=== PATIENT | female | born 1935 | race Caucasian/White ===

== ENCOUNTER → 2016-08-08 | Outpatient (CLI) | payer MEDICARE, OTHER ==
[~2016-08-08] MED LIST: ACET-789 PO; ALPR.25T PO; ALPR0.2550 PO; AMLO5TAB2 PO; AMOX500C2 PO; ASP325T PO; ASP81CT; ASPI325T4 PO; ATEN-158 PO; ATEN100T88 PO; Amlodipine Besylate PO; BENAZEPRIL HCL PO; BNZ40T PO; CALTRATE PO; CATHETER FLUSH 10 ML SYR IV PRN; EST45C VG; GLIM1TAB PO; GLMP1T PO; HYDR1TAB85 PO; IOHEXOL 350 MG/ML 100 ML (OMNIPAQUE 350) VIAL IV ONE; MELA1TAB9 PO; MELATONIN PO; MULT-608 PO; Meloxicam PO; NS 100 ML (IVPB) BAG IV ONE; OMEP20CA12 PO; OXAP600T2 PO; PYRIDOXINE HCL PO; Rivaroxaban PO; SCR1T1 PO; SIMV40TA2 PO; SIMV40TA4 PO; Simvastatin PO; TOLT1TAB PO; [UNRECOGNIZED DRUG - CODE] PO; [UNRECOGNIZED DRUG - OTHER] PO
--- NOTE | 2016-08-08 11:40 | Diagnostic Imaging Report ---
PROCEDURE: CT abdomen and pelvis with contrast, rule out appendicitis. TECHNIQUE: Multiple contiguous axial images were obtained through the abdomen and pelvis after the administration of intravenous contrast. INDICATION: Right flank pain x4-5 months. COMPARISON: None FINDINGS: Included views of the lung bases show moderate cardiomegaly, but are otherwise clear. CT abdomen: Normal appendix cannot be adequately identified, but there is no pericecal inflammation. There is colonic diverticulosis, but no CT evidence of acute diverticulitis. Small bowel loops are nondistended. Benign-appearing renal cysts are present, bilaterally. Multiple subcentimeter rounded hypoenhancing foci are also noted. These may represent small cysts as well, although are too small adequately characterize based on this exam. No solid enhancing renal mass type lesions are identified. The spleen, adrenal glands, pancreas, and liver have a normal CT appearance. There is no loculated fluid collection, free fluid or free air within the abdomen. No abnormal mesenteric or retroperitoneal adenopathy is seen. There is mild scattered calcified aortic and arterial atherosclerosis. Bony structures show age-related degenerative changes, but no new acute bony abnormalities are seen. CT pelvis: Urinary bladder is grossly unremarkable. There is a fat-containing periumbilical hernia. Ostia measures approximately 4.4 cm in transverse dimension. There is no loculated fluid collection, free fluid or free air within the pelvis. No abnormal adenopathy is seen. Bony structures show no acute abnormalities. IMPRESSION: 1. No acute abnormalities within the abdomen or pelvis. 2. Colonic diverticulosis, but no CT evidence of acute diverticulitis. 3. Fat containing periumbilical hernia. 4. Multiple benign-appearing bilateral renal cysts. Again, multiple subcentimeter hypoenhancing rounded foci are also noted and may represent cysts as well, but are too small to adequately characterize based on this exam. 5. Cardiomegaly. Dictated by: Dictated on workstation # [id number]
== END ==
LOC: RAD 10:49
PROVIDERS: ATTEND Nurse Practitioner Family
DX: R10.31 Right lower quadrant pain (principal)
CPT/HCPCS: 74177

== ENCOUNTER → 2016-11-17 | Outpatient (CLI) | payer MEDICARE, OTHER ==
[~2016-11-17] MED LIST changes: -CATHETER FLUSH 10 ML SYR IV PRN; -IOHEXOL 350 MG/ML 100 ML (OMNIPAQUE 350) VIAL IV ONE; -NS 100 ML (IVPB) BAG IV ONE
== END ==
LOC: CARD 12:54
PROVIDERS: ATTEND Physician Assistant
DX: I25.10 Atherosclerotic heart disease of native coronary artery without angina pectoris (principal); I65.23 Occlusion and stenosis of bilateral carotid arteries; I10 Essential (primary) hypertension; I48.0 Paroxysmal atrial fibrillation
CPT/HCPCS: 93306

== ENCOUNTER 2017-06-15 19:02 | Emergency (ER) | payer MEDICARE, OTHER ==
[~2017-06-15] VITALS: Ht 157.5 cm; Wt 83.3 kg
--- NOTE | 2017-06-15 19:19 | Diagnostic Imaging Report ---
INDICATION: Fall. Right-sided weakness. FINDINGS: Upright chest shows cardiomegaly with mild pulmonary venous distention. The lungs are clear. There is no effusion or pneumothorax. There is no acute bony abnormality. IMPRESSION: There is cardiomegaly with no failure. Dictated by: Dictated on workstation # [id number]
--- NOTE | 2017-06-15 19:19 | Diagnostic Imaging Report ---
INDICATION: Fall. Right-sided weakness. Facial droop Images through the head were obtained without contrast. There is a 2.7 x 2.9 cm parenchymal hemorrhage in the posterior basal ganglia on the left. There may be minimal hemorrhage in the adjacent lateral ventricle. The ventricles are normal in size, shape and position. There is no significant midline shift. There is no other area of edema, hemorrhage or mass. There is no extra-axial mass or hemorrhage. IMPRESSION: There is a 2.9 cm parenchymal hemorrhage in the basal ganglia on the left. Dictated by: Dictated on workstation # [id number]
[2017-06-15 19:21] LABS: BASOPHILS # (AUTO) 0.1 10^3/uL (0.0-0.1); BASOPHILS % (AUTO) 1 % (0-10); EOSINOPHILS # (AUTO) 0.1 10^3/uL (0.0-0.3); EOSINOPHILS % (AUTO) 1 % (0-10); HEMATOCRIT 40 % (35-52); HEMOGLOBIN 13.5 G/DL (11.5-16.0); LYMPHOCYTES % (AUTO) 35 % (12-44); MEAN CORPUSCULAR HEMOGLOBIN 29 PG (25-34); MEAN CORPUSCULAR HGB CONC 33 G/DL (32-36); MEAN CORPUSCULAR VOLUME 88 FL (80-99); MEAN PLATELET VOLUME 10.1 FL (7.4-10.4); MONOCYTES # (AUTO) 0.5 X 10^3 (0.0-1.0); MONOCYTES % (AUTO) 8 % (0-12); NEUTROPHILS # (AUTO) 3.1 X 10^3 (1.8-7.8); NEUTROPHILS % (AUTO) 54 % (42-75); PLATELET COUNT 250 10^3/uL (130-400); RED CELL DISTRIBUTION WIDTH 13.6 % (10.0-14.5); WHITE BLOOD COUNT 5.8 10^3/uL (4.3-11.0)
[2017-06-15 19:30] VITALS: BP 197/128
[2017-06-15] MEDS ORDERED: HUMAN PROTHROMBIN COMPLX(PCC) 500 UNIT (KCENTRA) IV ONE (19:30)
[2017-06-15 19:38] LABS: ALANINE AMINOTRANSFERASE 11 U/L (0-55); ALBUMIN 3.7 GM/DL (3.2-4.5); ALKALINE PHOSPHATASE 69 U/L (40-136); BILIRUBIN,TOTAL 0.8 MG/DL (0.1-1.0); BUN/CREATININE RATIO 20; CALCIUM 8.9 MG/DL (8.5-10.1); CARBON DIOXIDE 25 MMOL/L (21-32); CHLORIDE 108 MMOL/L (98-107); CREATININE SERUM 0.87 MG/DL (0.60-1.30); GFR ESTIMATED > 60; GLUCOSE 95 MG/DL (70-105); POTASSIUM 3.9 MMOL/L (3.6-5.0); SODIUM 143 MMOL/L (135-145); TOTAL PROTEIN 6.4 GM/DL (6.4-8.2)
[2017-06-15] MEDS ORDERED: hydrALAZINE (APESOLINE) 20 MG/ML VIAL ONE (19:38)
[2017-06-15] MEDS ORDERED: hydrALAZINE (APESOLINE) 20 MG/ML VIAL IV ONE (19:45)
[2017-06-15 19:47] LABS: BILIRUBIN,URINE NEGATIVE (NEGATIVE); CLARITY,URINE CLEAR; COLOR,URINE YELLOW; GLUCOSE, URINE (UA) NEGATIVE (NEGATIVE); KETONES,URINE NEGATIVE (NEGATIVE); LEUKOCYTE ESTERASE ,URINE NEGATIVE (NEGATIVE); NITRITE,URINE NEGATIVE (NEGATIVE); PH,URINE 8 (5-9); PROTEIN,URINE NEGATIVE (NEGATIVE); UROBILINOGEN,URINE NORMAL (NORMAL)
[2017-06-15 19:48] LABS: AMORPHOUS SEDIMENT,UR MOD AMOR PHOSPHATE /LPF; SQUAMOUS EPITHELIAL CELL,UR RARE /HPF
[2017-06-15] MEDS ORDERED: NS (IVPB) 250 ML ONE (19:48)
[2017-06-15] MEDS ORDERED: niCARdipine IV FOR DRIP 50 MG KIT ONE (19:48)
[2017-06-15] MEDS ORDERED: NS (IVPB) 100 ML ONE (19:51)
[2017-06-15 19:52] LABS: INR 2.8 (0.8-1.4); PROTHROMBIN TIME PATIENT 29.5 SEC (12.2-14.7)
[2017-06-15 19:55] LABS: FIBRIN DEGRADATION PRODUCTS 0.77 UG/ML (0.00-0.49)
[2017-06-15] MEDS ORDERED: DILTIAZEM IV FOR DRIP 125 MG in D5W 100 ML IVPB 100 ML IV SCH (20:00)
--- NOTE | 2017-06-15 20:00 | ED Neurological Problem ---
General Chief Complaint: Neuro-Stroke Like Symptoms Stated Complaint: STROKE Source: family, EMS Exam Limitations: clinical condition History of Present Illness Date Seen by Provider: Jun 15, 2017 Time Seen by Provider: 19:02 Initial Comments This 81-year-old woman presents to the emergency room with acute onset of right- sided weakness, dysphasia, dysarthria and altered mental status. Last known well time was around 18:00 when she was working outside. reported that she came inside and he heard a thump in the other room around 18:30. He found her on the floor in her present condition. EMS reports finger stick blood sugar is 100. Blood pressure for EMS was 110/70. Allergies and Home Medications Allergies Coded Allergies: No Known Drug Allergies (Unverified , 03/30/10) Home Medications Alprazolam 0.25 Mg Tab, 0.25 MG PO HS for 30 Days Prescribed by: IZABEL DO on 03/13/141730 Aspirin 325 Mg Tab, 325 MG PO DAILY for 30 Days Prescribed by: IZABEL DO on 03/13/14 173 Atenolol 50 Mg Tab, 100 MG PO BID for 30 Days Prescribed by: IZABEL DO on 03/13/141730 Glimepiride 1 Mg Tab, 0.5 MG PO DAILY for 30 Days Prescribed by: IZABEL DO on 03/13/141730 Oxaprozin 600 Mg Tablet, 600 MG PO DAILY, (Reported) [Amlodipine Besylate] 5 MG TAB, 5 MG PO DAILY for 30 Days Prescribed by: IZABEL DO on 03/13/14 173 [Benazepril Hcl (Lotensin 40 Mg)] 1 EA EA, 40 MG PO DAILY for 30 Days Prescribed by: IZABEL DO on 03/13/14 173 [Melatonin/Pyridoxine Hcl (Melatonin 1 Mg Tablet)] 1 EA EA, 1 MG PO HS for 30 Days Prescribed by: IZABEL DO on 03/13/14 173 [Meloxicam] 7.5 MG TABLET, 15 MG PO DAILY for 30 Days Prescribed by: IZABEL DO on 03/13/141730 [Rivaroxaban] 20 MG TABLET, 20 MG PO DAILY@1700 for 30 Days Prescribed by: IZABEL DO on 03/13/14 173 [Simvastatin] 40 MG TABLET, 20 MG PO HS for 30 Days Prescribed by: IZABEL DO on 03/13/14 1731 [Urinary Support] , 1 TAB PO DAILY, (Reported) HERBAL PILL WITH UVA-URSI LEAF, DAYO LEAF, BLACK HAW ROOT BARK, CRANBERRY JUICE CONCENTRATE, MELATONIN Constitutional: no symptoms reported, diaphoresis Ears, Nose, Mouth, Throat: no symptoms reported Respiratory: no symptoms reported Cardiovascular: see HPI Gastrointestinal: no symptoms reported Genitourinary: no symptoms reported : No Musculoskeletal: no symptoms reported Skin: no symptoms reported Psychiatric/Neurological: See HPI Endocrine: No Symptoms Reported Past Guiepew-Tthevo-Jcvcjw Hx Immunizations Up To Date Date of Pneumonia Vaccine: Oct 04, 2010 Surgeries History of Surgeries: Yes Surgeries: Gallbladder, Hysterectomy, Orthopedic Respiratory History of Respiratory Disorde: No Cardiovascular History of Cardiac Disorders: Yes Cardiac Disorders: Atrial Fibrillation (on Xarelto), Hypertension Neurological History of Neurological Disord: No Reproductive System Hx Reproductive Disorders: No Genitourinary History of Genitourinary Disor: No Gastrointestinal History of Gastrointestinal Di: Yes Gastrointestinal Disorders: Gastroesophageal Reflux Musculoskeletal History of Musculoskeletal Dis: Yes Musculoskeletal Disorders: Arthritis Endocrine History of Endocrine Disorders: Yes Endocrine Disorders: Diabetes, Non-Insulin dep HEENT History of HEENT Disorders: Yes HEENT Disorders: Cataract Family Medical History Family Medial History: Arthritis G8 BROTHER Cardiovascular disease G8 BROTHER Diabetes mellitus 19 MOTHER G8 BROTHER G8 SISTER Hypertension 19 MOTHER G8 BROTHER Myocardial infarction G8 BROTHER No Family History of: AIDS Abdominal aortic aneurysm Oxly's disease Alcoholism Alzheimer's disease Aphasia Asthma Cancer of mouth Colon cancer Completed stroke Congenital disease Congenital heart disease Coronary thrombosis Cystic fibrosis Deafness or hearing loss Dementia Drug abuse Dysphasia Fibrocystic disease of breast Gastroenteritis Glaucoma Headache disorder Hypercholesterolemia Infertility Kidney disease Neoplasm Osteoporosis Parkinson's disease Prostate cancer Psychosocial problem Respiratory disorder Seizure disorder Severe allergy Thyroid disease Tuberculosis Visual disorder Physical Exam Vital Signs Vital Signs - First Documented 06/15/17 06/15/17 19:02 19:05 Temp 96.8 Pulse 54 Resp 15 B/P (MAP) 201/117 (145) Pulse Ox 100 O2 Delivery Room Air O2 Flow Rate 2.00 Capillary Refill : General Appearance: WD/WN, mild distress HEENT: PERRL/EOMI, pharynx normal, other (right-sided facial droop) Neck: normal inspection Respiratory: lungs clear, normal breath sounds, no respiratory distress, no accessory muscle use Cardiovascular: regular rate, rhythm, no edema, no murmur Gastrointestinal: normal bowel sounds, soft Extremities: normal inspection, no pedal edema Neurologic/Psychiatric: alert, abnormal ob scrub tech II-XII (right-sided facial droop, dysarthria, dysphasia), aphasia, motor weakness (right upper extremity and left lower extremity notably weak. Left upper extremity and right lower extremity also weak but to a lesser degree) Crainal Nerves: PERRL, abnormal speech, facial droop (right side) Motor/Sensory: no sensory deficit Skin: normal color, warm/dry Progress/Results/Core Measures Results/Orders Lab Results Laboratory Tests Test 06/15/17 19:05 06/15/17 19:15 06/15/17 19:24 Range/Units White Blood Count 5.8 4.3-11.0 10^3/uL Red Blood Count 4.60 4.35-5.85 10^6/uL Hemoglobin 13.5 11.5-16.0 G/DL Hematocrit 40 35-52 % Mean Corpuscular Volume 88 80-99 FL Mean Corpuscular Hemoglobin 29 25-34 PG Mean Corpuscular Hemoglobin Concent 33 32-36 G/DL Red Cell Distribution Width 13.6 10.0-14.5 % Platelet Count 250 130-400 10^3/uL Mean Platelet Volume 10.1 7.4-10.4 FL Neutrophils (%) (Auto) 54 42-75 % Lymphocytes (%) (Auto) 35 12-44 % Monocytes (%) (Auto) 8 0-12 % Eosinophils (%) (Auto) 1 0-10 % Basophils (%) (Auto) 1 0-10 % Neutrophils # (Auto) 3.1 1.8-7.8 X 10^3 Lymphocytes # (Auto) 2.0 1.0-4.0 X 10^3 Monocytes # (Auto) 0.5 0.0-1.0 X 10^3 Eosinophils # (Auto) 0.1 0.0-0.3 10^3/uL Basophils # (Auto) 0.1 0.0-0.1 10^3/uL Sodium Level 143 135-145 MMOL/L Potassium Level 3.9 3.6-5.0 MMOL/L Chloride Level 108 H 98-107 MMOL/L Carbon Dioxide Level 25 21-32 MMOL/L Anion Gap 10 5-14 MMOL/L Blood Urea Nitrogen 17 7-18 MG/DL Creatinine 0.87 0.60-1.30 MG/DL Estimat Glomerular Filtration Rate > 60 BUN/Creatinine Ratio 20 Glucose Level 95 70-105 MG/DL Calcium Level 8.9 8.5-10.1 MG/DL Total Bilirubin 0.8 0.1-1.0 MG/DL Aspartate Amino Transf (AST/SGOT) 22 5-34 U/L Alanine Aminotransferase (ALT/SGPT) 11 0-55 U/L Alkaline Phosphatase 69 40-136 U/L Troponin I < 0.30 <0.30 NG/ML Total Protein 6.4 6.4-8.2 GM/DL Albumin 3.7 3.2-4.5 GM/DL Prothrombin Time 29.5 H 12.2-14.7 SEC INR Comment 2.8 H 0.8-1.4 Activated Partial Thromboplast Time 36 H 24-35 SEC D-Dimer 0.77 H 0.00-0.49 UG/ML Glucometer 101 70-110 MG/DL Urine Color YELLOW Urine Clarity CLEAR Urine pH 8 5-9 Urine Specific [place] 1.015 L 1.016-1.022 Urine Protein NEGATIVE NEGATIVE Urine Glucose (UA) NEGATIVE NEGATIVE Urine Ketones NEGATIVE NEGATIVE Urine Nitrite NEGATIVE NEGATIVE Urine Bilirubin NEGATIVE NEGATIVE Urine Urobilinogen NORMAL NORMAL MG/DL Urine Leukocyte Esterase NEGATIVE NEGATIVE Urine RBC (Auto) 4+ H NEGATIVE Urine RBC 10-25 H /HPF Urine WBC NONE /HPF Urine Squamous Epithelial Cells RARE /HPF Urine Crystals PRESENT H /LPF Urine Amorphous Sediment MOD BALA PHOSPHATE H /LPF Urine Bacteria NONE /HPF Urine Casts NONE /LPF Urine Mucus NEGATIVE /LPF Urine Culture Indicated NO My Orders Orders - SANJUANA FOLEY MD Cbc With Automated Diff (06/15/17 19:04) Protime With Inr (06/15/17 19:04) Partial Thromboplastin Time (06/15/17 19:04) Comprehensive Metabolic Panel (06/15/17 19:04) Fibrin Degradation Products (06/15/17 19:04) Troponin I (06/15/17 19:04) Ua Culture If Indicated (06/15/17 19:04) Chest 1 View, Ap/Pa Only (06/15/17 19:04) Catheter(Urinary) Insert & Ass 03,15 (06/15/17 19:04) Ekg Tracing (06/15/17 19:04) Nothing By Mouth (06/16/17 Breakfast) Accucheck Stat ONCE (06/15/17 19:04) Saline Lock/Iv-Start (06/15/17 19:04) Saline Lock/Iv-Start (06/15/17 19:04) Vital Signs - Stroke Q15M (06/15/17 19:04) Ct Head Wo-R/O Stroke (06/15/17 19:04) O2 (06/15/17 19:04) Intake & Output 06,14,22 (06/15/17 19:04) Monitor-Rhythm Ecg Trace Only (06/15/17 19:04) Dysphagia Screening Tool (06/15/17 19:04) Post Thrombolytic Adminstratio (06/15/17 19:04) Human Prothrombin Complx(Pcc) (Kcentra K (06/15/17 19:30) Hydralazine Injection (Apresoline Inject (06/15/17 19:45) Hydralazine Injection (Apresoline Inject (06/15/17 19:38) Nicardipine Iv For Drip (Cardene I.V. (O (06/15/17 19:48) Ns (Ivpb) (Sodium Chloride 0.9%) (06/15/17 19:48) Ns (Ivpb) (Sodium Chloride 0.9% Ivpb Bag (06/15/17 19:51) D5w 100 Ml Ivpb (De... W/Diltiazem Iv Fo (06/15/17 20:00) Phytonadione (Adult) Injection (Aquameph (06/15/17 20:15) Phytonadione (Adult) Injection (Aquameph (06/15/17 20:12) Ns (Ivpb) (Sodium C... W/Nicardipine Iv (06/15/17 20:30) Medications Given in ED Current Medications Medications Dose Ordered Sig/Sonia Route Start Time Stop Time Status Last Admin Dose Admin Hydralazine HCl 20 mg ONCE ONCE IV 06/15/17 19:45 06/15/17 19:46 DC 06/15/17 19:40 20 MG Nicardipine HCl 50 mg STK-MED ONCE .ROUTE 06/15/17 19:48 06/15/17 19:51 DC 06/15/17 19:58 50 MG Phytonadione 10 mg STK-MED ONCE .ROUTE 06/15/17 20:12 06/15/17 20:15 DC 06/15/17 20:19 10 MG Prothrombin Complex Concent (Human) 4,000 unit ONCE ONCE IV 06/15/17 19:30 06/15/17 19:31 DC 06/15/17 19:59 4,000 UNIT Vital Signs/I&O Vital Sign - Last 12Hours 06/15/17 06/15/17 06/15/17 19:02 19:05 19:58 Temp 96.8 Pulse 54 72 Resp 15 16 B/P (MAP) 201/117 (145) 166/70 Pulse Ox 100 98 O2 Delivery Room Air Nasal Cannula Room Air O2 Flow Rate 2.00 ECG Initial ECG Impression Date: Jun 15, 2017 Initial ECG Impression Time: 19:17 Initial ECG Rate: 56 Initial ECG Rhythm: A Fib/Flutter Initial ECG Impression: Atrial Fibrillation Comment Atrial fibrillation with slightly bradycardic rate. Borderline left axis deviation. No ST elevation or depression. Diagnostic Imaging Diagonstic Imaging: Xray Plain Films/CT/US/NM/MRI: chest Comments NAME: RACHEL JUAREZ MED REC#: [id number] PT STATUS: REG ER : 1935 PHYSICIAN: SANJUANA FOLEY MD ADMIT DATE: 06/15/17/ER Signed Date of Exam: 06/15/17 CHEST 1 VIEW, AP/PA ONLY INDICATION: Fall. Right-sided weakness. FINDINGS: Upright chest shows cardiomegaly with mild pulmonary venous distention. The lungs are clear. There is no effusion or pneumothorax. There is no acute bony abnormality. IMPRESSION: There is cardiomegaly with no failure. Dictated by: Dictated on workstation # [id number] Dict: 06/15/171914 Trans: 06/15/171924 Interpreted by: MEIR MONTIEL MD Electronically signed by: MEIR MONTIEL MD 06/15/171924 Diagonstic Imaging: CT Plain Films/CT/US/NM/MRI: head Comments CT head viewed by me and immediately discussed with the radiologist. Report reviewed. See report below: NAME: RACHEL JUAREZ [facility] REC#: [id number] PT STATUS: REG ER : 1935 PHYSICIAN: SANJUANA FOLEY MD ADMIT DATE: 06/15/17/ER Signed Date of Exam: 06/15/17 CT HEAD WO-R/O STROKE INDICATION: Fall. Right-sided weakness. Facial droop Images through the head were obtained without contrast. There is a 2.7 x 2.9 cm parenchymal hemorrhage in the posterior basal ganglia on the left. There may be minimal hemorrhage in the adjacent lateral ventricle. The ventricles are normal in size, shape and position. There is no significant midline shift. There is no other area of edema, hemorrhage or mass. There is no extra-axial mass or hemorrhage. IMPRESSION: There is a 2.9 cm parenchymal hemorrhage in the basal ganglia on the left. Dictated by: Dictated on workstation # [id number] Dict: 06/15/171912 Trans: 06/15/171924 Interpreted by: MEIR MONTIEL MD Electronically signed by: MEIR MONTIEL MD 06/15/171924 Critical Care Note Critical Care Start Time: 19:02 Stop Time: 20:40 Progress 19:55 - Patient was taken immediately to CT scan for symptoms of acute stroke. There she was found to have a significant left-sided parenchymal hemorrhage. Patient is on Xarelto for atrial fibrillation. Patient has fairly profound deficits with an NIH of 23. Deficits are bilateral and also affect speech and comprehension. KCentra was ordered as part of the hemorrhage protocol. Patient developed hypertension after arrival. She was given hydralazine 20 mg by IV route. Cardizem drip was then ordered. I discussed wishes with patient' s who is agreeable to transfer to a facility with a neurosurgical expertise. [facility] [place] will accept the patient. I discussed the case with Dr. Anderson and Dr. Monterroso at 19:25. Patient was accepted. [facility] on standby. I did have a discussion with patient's about CODE STATUS. He stated in prior discussions patient indicated she did not want life support. Based on her overall condition and this discussion, the and I elect DO NOT RESUSCITATE status. Patient is unable to clearly communicate her wishes in this regard at this time. 19:59 - Bed assignment was received from [facility] and the helicopter service has been notified. 20:05 - The CT scan of the cervical spine was not performed with the standard protocol for stroke. Therefore a c-collar was placed because we are uncertain if patient had a fall. She will be reimaged at the receiving facility and cervical spine can be imaged at that time. Imaging the cervical spine at this point will not change her disposition. 20:14 - Patient's medications were further reviewed including her external medication filling list. Although the initial list in our computer system noted Xarelto, she actually has most recently been on warfarin. Patient's confirms that she is on warfarin and not Xarelto. Vitamin K 10 mg IV was added to the anticoagulant reversal. Patient did receive the PCC. (KCentra) . [facility] was updated through the transfer line. 20:21 - Cardene drip is infusing. Present blood pressure is 129/69. Heart rate is 71. Departure Impression Impression: Primary Impression: Intracranial hemorrhage Additional Impressions: Dysarthria Dysphasia Weakness of extremity Anticoagulated on warfarin Hypertensive emergency Disposition: 02 XFER SHT-TRM HOSP Condition: Stable Transfer Time Spoke to Accepting Phy: 19:25 Transfer Time: 20:45 [facility] Dr. Monterroso Method of Transfer: Air Departure-Patient Inst. Referrals: RISA RAMIREZ MD (PCP/Family) Primary Care Physician SANJUANA FOLEY MD Jun 15, 2017 20:00
[2017-06-15] MEDS ORDERED: PHYTONADIONE (VIT. K) 10 MG/ML AMP ONE (20:12)
[2017-06-15] MEDS ORDERED: D5W IV ONE (20:15)
[2017-06-15] MEDS ORDERED: PHYTONADIONE IV ONE (20:15)
[2017-06-15] MEDS ORDERED: niCARdipine IV 50 MG in NS (IVPB) 230 ML IV SCH (20:30)
[2017-06-15 20:40] VITALS: BP 129/69
[2017-06-15 20:45] VITALS: BP 129/69
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
--- OUTSIDE RECORDS SUMMARY | 2017-06-18 12:59 | XMS REPORT | Clinical Summary ---
Author Author User, [employer] Organization [facility] Address Unknown Phone Unavailable Allergies, Adverse Reactions, [...] Coronary atherosclerosis of unspecified type of vessel, [place] or graft INSOMNIA, CHRONIC 780.52 Active Dena [...] Urinary frequency KNEE PAIN 719.46 Resolved Dena Pike Pain in joint involving lower leg ACTINIC [...] perforation EAR PAIN, BILATERAL 388.70 Resolved Dena Pkie Otalgia, unspecified GERD 530.81 Resolved Dena Pike [...] PO on Thursday and . WARFARIN SODIUM 40892010793 Active Dena Pike AMARYL 1 MG TABS 1/2 PO daily GLIMEPIRIDE 35809235558 Active Dena Pike XARELTO 20 MG TABS 1 po daily RIVAROXABAN 09426076177 No Longer Active Dena Pike LASIX 20 MG TAB 1 PO 3 times weekly prn swelling FUROSEMIDE 12686760411 Active Gloria Frazier ZANTAC 150 MG TAB 1 PO bid RANITIDINE HCL 60725509687 No Longer Active Dena Juhi Pike MOBIC 15 MG TABS 1 po daily MELOXICAM 37735596965 Active Dena Pike FREESTYLE TEST STRIPS STRP as directed GLUCOSE BLOOD 63244938639 No Longer Active Dena Juhi Pike CALTRATE 600 PLUS-VIT D 600-200 MG-IU TABS 1 PO bid CALCIUM-VITAMIN D 70707563845 No Longer Active Denaagata Pike HERBAL BLADDER MEDICINE 1 PO daily HERBAL BLADDER MEDICINE No Longer Active Denaagata Pike CLOTRIMAZOLE-BETAMETHASONE 1-0.05 % CREA apply to affected areas prn CLOTRIMAZOLE-BETAMETHASONE 67750354644 No Longer Active Dean Juhi Pike ZOCOR 40 MG TABS 1/2 PO DAILY SIMVASTATIN 29082447009 Active Denaagata Pike SILVADENE 1 % CREA apply small amount over wound twice daily 2011 SILVER SULFADIAZINE 28127216856 No Longer Active Denaagata Pike NORVASC 5 MG TAB 1 PO QD AMLODIPINE BESYLATE 80399647467 Active Dena Juhi Pike DAYPRO 600 MG TABS 1 PO DAILY OXAPROZIN 10973077680 No Longer Active Wing Smiley XANAX 0.25 MG TABS 1 PO Q hs ALPRAZOLAM 03066152778 Active Dena Juhi Pike XANAX 0.25 MG TABS 1 PO BID as needed for nerves ALPRAZOLAM 21317797948 No Longer Active Denaagata Pike HYDROCODONE-ACETAMINOPHEN 10-660 MG TABS 1 po q 3 hrs prn pain HYDROCODONE-ACETAMINOPHEN 01139447553 No Longer Active Dena Juhi Pike MOBIC 15 MG TABS 1 PO daily for arthritis pain MELOXICAM 83108340602 No Longer Active Gloriatierra Frazier COUMADIN 5 MG TAB 1 PO daily WARFARIN SODIUM 83071516581 No Longer Active Dena Juhi Pike PROTONIX 40 MG TBEC 1 po qd PANTOPRAZOLE SODIUM 91112095112 No Longer Active Dena Juhi Pike LASIX 20 MG TAB 1 PO daily prn swelling FUROSEMIDE 03135604625 No Longer Active Dena Juhi iPke CARAFATE 1 GM TABS 1 PO 30 minutes before meals and at bedtime SUCRALFATE 75112327065 No Longer Active Dena Juhi Pike FISH OIL 500 MG CAPS 1 PO daily OMEGA-3 FATTY ACIDS 96523245149 No Longer Active Dena Juhi Pike OMEPRAZOLE 20 MG CPDR 1 PO BID OMEPRAZOLE 83903069091 No Longer Active Dena Juhi Pike DIOVAN 320 MG TABS 1 PO daily VALSARTAN 56203006361 No Longer Active Dena Juhi Pike ASPIR-LOW 81 MG TBEC 1 PO QOD ASPIRIN 00807498516 No Longer Active Dena Juhi Pike K-DUR 10 MEQ TAB CR 1 PO daily as directed POTASSIUM CHLORIDE No Longer Active Dena Juhi Pike LASIX 20 MG TAB 1 PO every other day prn swelling FUROSEMIDE 50527312180 No Longer Active Denaagata Pike DETROL 1 MG TABS 1 PO BID TOLTERODINE TARTRATE 60975001221 No Longer Active Gómez Gomez BENADRYL 25 MG CAP 1 PO QPM DIPHENHYDRAMINE HCL 17016185109 No Longer Active Denaagata Pike MELATONIN 5 MG TABS 1 PO QHS MELATONIN 69331337612 Active Dena Juhi Pike VYTORIN 10-20 MG TABS 1/2 PO daily EZETIMIBE-SIMVASTATIN 46827527848 No Longer Active Dena Juhi Pike LOTENSIN 40 MG TAB 1 PO Daily BENAZEPRIL HCL 52452386926 Active Dena Juhi Pike ZOCOR 10 MG TABS 1 po daily SIMVASTATIN 98316195978 No Longer Active Valerie Talbertgrist LIPITOR 10 MG TABS 1 PO QOD ATORVASTATIN CALCIUM 47230350649 No Longer Active Ashlee Sheppard K-DUR 20 MEQ TBCR 1 po daily prn POTASSIUM CHLORIDE KAMINI CR 46327778776 No Longer Active Dena Juhi Pike LASIX 20 MG TABS 1 po daily prn FUROSEMIDE 71413137940 No Longer Active Dena Juhi Pike LIPITOR 10 MG TABS 1 tab po qod ATORVASTATIN CALCIUM 55157815142 No Longer Active Dena Juhi Pike LUNESTA 2 MG TABS 1 PO QHS prn ESZOPICLONE 48205610129 No Longer Active Dena Juhi Pike ADVAIR DISKUS 100-50 MCG/DOSE MISC 1 puff BID for 3 days FLUTICASONE-SALMETEROL 22048755699 No Longer Active Dena Juhi Pike ALTACE 10 MG CAPS 1 PO daily RAMIPRIL 76668204278 No Longer Active Gloria Frazier LUNESTA 2MG 1 PO QHS LUNESTA 2MG No Longer Active Dena Juhi Pike AVANDIA 4 MG TABS 1 po BID ROSIGLITAZONE MALEATE 93556776738 No Longer Active Dena Juhi Pike TRAZODONE HCL 50 MG TABS 1-2 tabs po at hs TRAZODONE HCL 99789471848 No Longer Active Dena Juhi Pike OMEPRAZOLE 20 MG CPDR 1 tab po daily prn OMEPRAZOLE 97479561185 No Longer Active Dena Juhi Pike DAYPRO 600 MG TABS 1/2 - 1 tab po daily prn OXAPROZIN 53989018086 No Longer Active Dena Juhi Pike LOTREL 5-10 MG CAP 1 PO QD AMLODIPINE BESY-BENAZEPRIL HCL 51554136925 No Longer Active Dena Juhi Pike GLUCOPHAGE 500 MG TAB 1 PO TID METFORMIN HCL 09170534183 No Longer Active Dena Juhi Pike AMBIEN 10 MG TAB 1 prn ZOLPIDEM TARTRATE 62479570783 No Longer Active Dena Juhi Pike GLUCOPHAGE 500 MG TABS 1 tab po tid METFORMIN HCL 54161525248 No Longer Active Dena Juhi Pike LISINOPRIL 20 MG TABS 1 tab po daily LISINOPRIL 89541909563 No Longer Active Dena Juhi Pike ATENOLOL 100 MG TABS 1 tab po bid ATENOLOL 61700209174 Active Dena Juhi Pike Immunizations Vaccine Administration Date Value Standard Description Influenza vaccine given received influenza virus vaccine, unspecified formulation pneumococcal immunization administered done pneumococcal polysaccharide vaccine, 23 valent dT (Diphtheria and Tetanus) booster given Dr. Pike Td(adult) unspecified formulation Comvax, combined Hemophilus influenza B and Hepatitis B virus vaccine done Haemophilus influenzae type b conjugate and Hepatitis B vaccine pneumococcal immunization administered [facility] pneumococcal polysaccharide vaccine, 23 valent Vital [...] mg/dL Encounters Code Encounter Date Provider Facility CPT-74520 Ofc Vst, Est Level III 12:15:17 CDT Denaagata Monahan Pike, DO, FACP CPT-66171 Ofc Vst, Est Level III 16:00:06 CDT Dena Juhi Monahan Pike, DO, FACP CPT-43898 Ofc Vst, Est Level IV 11:43:30 CDT Dena Juhi Monahan Glendy, DO, FACP CPT-62672 Ofc Vst, Est Level III 17:09:51 CDT Denaagata Monahan Glendy, DO, FACP CPT-35599 Ofc Vst, Est Level IV 15:22:22 ELECTRONIC FIELD SERVICE ENGINEER eDna Monahan Glendy, DO, FACP CPT-92745 Ofc Vst, Est Level IV 15:46:40 CDT Dena Juhi Monahan Glendy, DO, FACP CPT-97354 Ofc Vst, Est Level IV 11:09:13 CDT Denaagata [facility] CPT-56853 Ofc Vst, Est Level IV 11:32:45 CDT Dena Juhi Monahan Glendy, DO, FACP CPT-67953 Ofc Vst, Est Level V 11:22:10 ELECTRONIC FIELD SERVICE ENGINEER Dena Monahan Glendy, DO, FACP CPT-43243 Ofc Vst, Est Level IV 10:53:51 ELECTRONIC FIELD SERVICE ENGINEER Dena Juhi Monahan Pike, DO, FACP CPT-49888 Ofc Vst, Est Level IV 10:55:38 CDT Dena Juhi Monahan Glendy, DO, FACP CPT-59701 Ofc Vst, Est Level IV 12:00:45 CDT Denaagata Monahan Glendy, DO, FACP CPT-05812 Ofc Vst, Est Level IV 12:02:26 ELECTRONIC FIELD SERVICE ENGINEER Dena Juhi Monahan Glendy, DO, FACP CPT-55209 Ofc Vst, Est Level IV 11:23:31 CDT Dena Juhi Monahan Glendy, DO, FACP CPT-07373 Ofc Vst, Est Level IV 10:43:31 CDT Dena Juhi Monahan Glendy, DO, FACP CPT-99739 Ofc Vst, Est Level IV 11:03:49 CDT Dena Juhi Monahan Glendy, DO, FACP CPT-45000 Ofc Vst, Est Level IV 11:59:36 CDT Dena Juhi Monahan Glendy, DO, FACP CPT-60618 Ofc Vst, Est Level IV 11:55:00 ELECTRONIC FIELD SERVICE ENGINEER Dena Monahan Glendy, DO, FACP CPT-73981 Ofc Vst, Est Level IV 14:11:27 CDT Dena Juhi Monahan Glendy, DO, FACP CPT-32037 Ofc Vst, Est Level III 13:44:49 CDT Dena Juhi Monahan Glendy, DO, FACP CPT-18304 Ofc Vst, Est Level V 11:29:53 CDT Denaagata Monahan Glendy, DO, FACP CPT-52169 Ofc Vst, Est Level IV 15:14:05 ELECTRONIC FIELD SERVICE ENGINEER Denaagata Monahan Glendy, DO, FACP CPT-92288 Ofc Vst, Est Level IV 14:47:42 CDT Dena Juhi Monahan Glendy, DO, FACP CPT-29184 Ofc Vst, Est Level IV 14:22:26 CDT Dena Cortezanne Glendy [facility] CPT-35933 Ofc Vst, Est Level IV 14:22:07 CDT Dena Juhi Pike [facility] CPT-24035 Ofc Vst, Est Level IV 14:37:46 ELECTRONIC FIELD SERVICE ENGINEER Dena Pike [facility] CPT-27069 Ofc Vst, Est Level IV 13:47:03 CDT Dena Pike [facility] CPT-89805 Ofc Vst, Est Level IV 14:19:58 CDT Dena Pike [facility] CPT-34975 Ofc Vst, Est Level IV 14:14:41 ELECTRONIC FIELD SERVICE ENGINEER Dena Pike [facility] CPT-93945 Ofc Vst, Est Level IV 15:18:29 ELECTRONIC FIELD SERVICE ENGINEER Dena Pike [facility] CPT-31586 Ofc Vst, Est Level IV 15:00:16 ELECTRONIC FIELD SERVICE ENGINEER Dena Pike [facility] CPT-04509 Ofc Vst, Est Level IV 16:17:24 ELECTRONIC FIELD SERVICE ENGINEER Dena Pike [facility] CPT-38911 Ofc Vst, Est Level V 10:49:19 ELECTRONIC FIELD SERVICE ENGINEER Dena Pike [facility] CPT-51138 Ofc Vst, Est Level IV 14:06:43 CDT Dena Pike [facility] CPT-40375 Ofc Vst, Est Level IV 14:00:54 CDT Dena Pike [facility] CPT-66183 Ofc Vst, Est Level IV 18:22:05 ELECTRONIC FIELD SERVICE ENGINEER Dena Pike [facility] CPT-26730 Ofc Vst, Est Level IV 17:56:25 ELECTRONIC FIELD SERVICE ENGINEER Dena Pike [facility] CPT-06916 Ofc Vst, Est Level IV 19:09:11 CDT Dena Pike [facility] CPT-17382 Ofc Vst, New Level III 15:31:43 CDT Dena Pike [facility] Procedures Code Procedure Name Date Entry Date [...] Medicare Annual Wellness Visit Initial 15:35:03 CDT CPT-80693 Injection, Pneumovax 10:53:51 ELECTRONIC FIELD SERVICE ENGINEER CPT-07655 Cryopathy Skin 10:53:51 ELECTRONIC FIELD SERVICE ENGINEER CPT-81937 Tetanus vaccine, adsorbed, intramuscular 13:44:49 CDT CPT-87144 Cryopathy Skin 14:22:07 CDT CPT-61408 Cryopathy Skin 14:37:46 ELECTRONIC FIELD SERVICE ENGINEER CPT-27768 EKG w/ Interpretation 10:49:19 ELECTRONIC FIELD SERVICE ENGINEER
--- OUTSIDE RECORDS SUMMARY | 2017-06-18 13:00 | XMS REPORT | Clinical Summary ---
Author Author User, [employer] Organization [facility] Address Unknown Phone Unavailable Allergies, Adverse Reactions, [...] Coronary atherosclerosis of unspecified type of vessel, [place] or graft INSOMNIA, CHRONIC 780.52 Active Dena [...] keratosis VACCINE AGAINST STREPTOCOCCUS PNEUMONIAE V03.82 Resolved eDna Pike Need for prophylactic vaccination against Streptococcus [...] Generic Name NDC Status Provider Patient Instruction CLOTRIMAZOLE-BETAMETHASONE 1-0.05 % CREA APPLY TO AFFECTED AREAS PRN CLOTRIMAZOLE-BETAMETHASONE 43953038368 Active Dena Pike CALTRATE 600 PLUS-VIT D 600-200 MG-IU TABS 1 PO daily CALCIUM-VITAMIN D Active Dena Pike COUMADIN 2 MG TAB 1 PO daily except 2 PO on Thursday and . WARFARIN SODIUM 09327507729 Active Dena Pike AMARYL 1 MG TABS 1/2 PO daily GLIMEPIRIDE 43742127875 Active Dena Pike XARELTO 20 MG TABS 1 po daily RIVAROXABAN 51264343353 No Longer Active Dena Pike LASIX 20 MG TAB 1 PO 3 times weekly prn swelling FUROSEMIDE 16110292636 Active Gloria Frazier ZANTAC 150 MG TAB 1 PO bid RANITIDINE HCL 83040646154 No Longer Active Dena Pike MOBIC 15 MG TABS 1 po daily MELOXICAM 68360809729 Active Gloria Frazier FREESTYLE TEST STRIPS STRP as directed GLUCOSE BLOOD 67181937583 No Longer Active Dena Pike CALTRATE 600 PLUS-VIT D 600-200 MG-IU TABS 1 PO bid CALCIUM-VITAMIN D 35138024907 No Longer Active Dena Pike HERBAL BLADDER MEDICINE 1 PO daily HERBAL BLADDER MEDICINE No Longer Active Dena Pike CLOTRIMAZOLE-BETAMETHASONE 1-0.05 % CREA apply to affected areas prn CLOTRIMAZOLE-BETAMETHASONE 59306101453 No Longer Active Dena Pike ZOCOR 40 MG TABS 1/2 PO DAILY SIMVASTATIN 93818801850 Active Gloria Frazier SILVADENE 1 % CREA apply small amount over wound twice daily 2011 SILVER SULFADIAZINE 79481384931 No Longer Active Dena Pike NORVASC 5 MG TAB 1 PO QD AMLODIPINE BESYLATE 31547861819 Active Dena Pike DAYPRO 600 MG TABS 1 PO DAILY OXAPROZIN 49527695238 No Longer Active Wing Smiley XANAX 0.25 MG TABS 1 PO Q hs ALPRAZOLAM 78140262889 Active Gloria Frazier XANAX 0.25 MG TABS 1 PO BID as needed for nerves ALPRAZOLAM 57107169076 No Longer Active Dena Pike HYDROCODONE-ACETAMINOPHEN 10-660 MG TABS 1 po q 3 hrs prn pain HYDROCODONE-ACETAMINOPHEN 65486536614 No Longer Active Dena Juhi Pike MOBIC 15 MG TABS 1 PO daily for arthritis pain MELOXICAM 22129732501 No Longer Active Gloria Frazier COUMADIN 5 MG TAB 1 PO daily WARFARIN SODIUM 19083102066 No Longer Active Dena Juhi Pike PROTONIX 40 MG TBEC 1 po qd PANTOPRAZOLE SODIUM 84760426132 No Longer Active Dena Juhi Pike LASIX 20 MG TAB 1 PO daily prn swelling FUROSEMIDE 84352773232 No Longer Active Denaagata Pike CARAFATE 1 GM TABS 1 PO 30 minutes before meals and at bedtime SUCRALFATE 22152082049 No Longer Active Dena Juhi Pike FISH OIL 500 MG CAPS 1 PO daily OMEGA-3 FATTY ACIDS 66259811492 No Longer Active Denaagata Pike OMEPRAZOLE 20 MG CPDR 1 PO BID OMEPRAZOLE 58026731172 No Longer Active Denaagata Pike DIOVAN 320 MG TABS 1 PO daily VALSARTAN 14692968608 No Longer Active Dena Juhi Pike ASPIR-LOW 81 MG TBEC 1 PO QOD ASPIRIN 30160649965 No Longer Active Dena Juhi Pike K-DUR 10 MEQ TAB CR 1 PO daily as directed POTASSIUM CHLORIDE No Longer Active Dena Juhi Pike LASIX 20 MG TAB 1 PO every other day prn swelling FUROSEMIDE 97683077547 No Longer Active Dena Pike DETROL 1 MG TABS 1 PO BID TOLTERODINE TARTRATE 52700764528 No Longer Active Gómez Gomez BENADRYL 25 MG CAP 1 PO QPM DIPHENHYDRAMINE HCL 59449785675 No Longer Active Denaagata Pike MELATONIN 5 MG TABS 1 PO QHS MELATONIN 18921567569 Active Dena Juhi Pike VYTORIN 10-20 MG TABS 1/2 PO daily EZETIMIBE-SIMVASTATIN 57214601573 No Longer Active Dena Juhi Pike LOTENSIN 40 MG TAB 1 PO Daily BENAZEPRIL HCL 78045746499 Active Dena Juhi Pike ZOCOR 10 MG TABS 1 po daily SIMVASTATIN 56110831395 No Longer Active Valerie Siegrist LIPITOR 10 MG TABS 1 PO QOD ATORVASTATIN CALCIUM 71391321054 No Longer Active Ashlee Sheppard K-DUR 20 MEQ TBCR 1 po daily prn POTASSIUM CHLORIDE KAMINI CR 35171057404 No Longer Active Dena Juhi Pike LASIX 20 MG TABS 1 po daily prn FUROSEMIDE 11042403210 No Longer Active Dena Juhi Pike LIPITOR 10 MG TABS 1 tab po qod ATORVASTATIN CALCIUM 00376436622 No Longer Active Dena Juhi Pike LUNESTA 2 MG TABS 1 PO QHS prn ESZOPICLONE 95748534597 No Longer Active Dena Juhi Pike ADVAIR DISKUS 100-50 MCG/DOSE MISC 1 puff BID for 3 days FLUTICASONE-SALMETEROL 93118073385 No Longer Active Dena Juhi Pike ALTACE 10 MG CAPS 1 PO daily RAMIPRIL 59041199635 No Longer Active Gloria Goveatis LUNESTA 2MG 1 PO QHS LUNESTA 2MG No Longer Active Dena Juhi Pike AVANDIA 4 MG TABS 1 po BID ROSIGLITAZONE MALEATE 41283428605 No Longer Active Dena Juhi Pike TRAZODONE HCL 50 MG TABS 1-2 tabs po at hs TRAZODONE HCL 09352235304 No Longer Active Dena Juhi Pkie OMEPRAZOLE 20 MG CPDR 1 tab po daily prn OMEPRAZOLE 67119998582 No Longer Active Dena Juhi Glendy DAYPRO 600 MG TABS 1/2 - 1 tab po daily prn OXAPROZIN 24918485433 No Longer Active Dena Juhi Pike LOTREL 5-10 MG CAP 1 PO QD AMLODIPINE BESY-BENAZEPRIL HCL 14409439509 No Longer Active Dena Juhi Pike GLUCOPHAGE 500 MG TAB 1 PO TID METFORMIN HCL 95728325004 No Longer Active Dena Juhi Pike AMBIEN 10 MG TAB 1 prn ZOLPIDEM TARTRATE 73785918244 No Longer Active Dena Juhi Glendy GLUCOPHAGE 500 MG TABS 1 tab po tid METFORMIN HCL 98017798070 No Longer Active Dena Juhi Pike LISINOPRIL 20 MG TABS 1 tab po daily LISINOPRIL 66046537946 No Longer Active Dena Juhi Pike ATENOLOL 100 MG TABS 1 tab po bid ATENOLOL 37700509801 Active Gloria Frazier Immunizations Vaccine Administration Date Value Standard Description Influenza vaccine given received influenza virus vaccine, unspecified formulation pneumococcal immunization administered done pneumococcal polysaccharide vaccine, 23 valent dT (Diphtheria and Tetanus) booster given Dr. Pike Td(adult) unspecified formulation Comvax, combined Hemophilus influenza B and Hepatitis B virus vaccine done Haemophilus influenzae type b conjugate and Hepatitis B vaccine pneumococcal immunization administered [facility] pneumococcal polysaccharide vaccine, 23 valent Vital Signs [...] Estimated Glomerular Filtration Rate (calc) 58 mL/min/1.73m2 glucose, plasma fasting 84 mg/dL albumin, serum 3.7 g/dL cholesterol/HDL ratio, serum, percent 2.7 anion gap, serum 9 sodium, serum 141 mmol/L triglyceride, serum, fasting 83 mg/dL bilirubin, serum, total 0.6 mg/dL alanine aminotransferase (SGPT), serum 10 U/L aspartate aminotransferase (SGOT), serum 17 U/L protein, total, serum 6.0 g/dL potassium, serum 4.1 mmol/L LDL cholesterol, serum 63 mg/dL thyroid stimulating hormone, serum 3.42 u[iU]/mL hemoglobin A1C, blood, as % of total hemoglobin 6.1 % HDL cholesterol, serum 46.0 mg/dL creatinine, serum 1.0 mg/dL carbon dioxide, venous blood 29.0 mmol/L cholesterol, serum 126 mg/dL chloride, serum 107 mmol/L calcium, serum 8.7 mg/dL urea nitrogen, blood 13 mg/dL alkaline phosphatase, serum 61 U/L Clinical Lists Update: CBC,CMP,FLP,TSH,MICROALBUMIN,PT,INR - Coagulation prothrombin time (patient) 27.30 s international normalized ratio (INR) 2.63 Clinical Lists Update: CBC,CMP,FLP,TSH,MICROALBUMIN,PT,INR - Hematology hematocrit, blood 42 % hemoglobin, blood 12.8 g/dL platelet count 249 10*3/mm3 erythrocyte (RBC) count 4.55 10*6/mm3 leukocyte count, blood 6.5 10*3/mm3 mean corpuscular volume, RBC 91 fL red blood cell distribution width 15.1 % Clinical Lists Update: CBC,CMP,FLP,TSH,MICROALBUMIN,PT,INR - Urinalysis microalbumin, urine, semiquantitative 0.2 mg/dL Clinical Lists Update: CMP,FLP,HgA1c - Chemistry cholesterol/HDL ratio, serum, percent 2.8 LDL cholesterol, serum 59 mg/dL hemoglobin A1C, blood, as % of total hemoglobin 6.0 % HDL cholesterol, serum 43.0 mg/dL creatinine, serum 0.8 mg/dL carbon dioxide, venous blood 29.0 mmol/L cholesterol, serum 119 mg/dL chloride, serum 106 mmol/L calcium, serum 9.0 mg/dL urea nitrogen, blood 11 mg/dL alkaline phosphatase, serum 58 U/L albumin, serum 3.7 g/dL glucose, plasma fasting 97 mg/dL Estimated Glomerular Filtration Rate (calc) 71 mL/min/1.73m2 aspartate aminotransferase (SGOT), serum 15 U/L alanine aminotransferase (SGPT), serum 9 U/L bilirubin, serum, total 0.7 mg/dL triglyceride, serum, fasting 84 mg/dL sodium, serum 141 mmol/L anion gap, serum 10 protein, total, serum 6.0 g/dL potassium, serum 4.1 mmol/L Encounters Code Encounter Date Provider Facility CPT-08280 Ofc Vst, Est Level III 12:15:17 CDT Denaagata Lighti Hero Glendy, DO, FACP CPT-92529 Ofc Vst, Est Level III 16:00:06 CDT Denaagata Jimner Denaagata Pike, DO, FACP CPT-48347 Ofc Vst, Est Level IV 11:43:30 CDT Denaagata Reynaga Pike Dena Hero Glendy, DO, FACP CPT-75551 Ofc Vst, Est Level III 17:09:51 CDT Denaagata Reynaga Pike Denaagata Pike, DO, FACP CPT-02751 Ofc Vst, Est Level IV 15:22:22 VP GENETIC Dena Reynaga Glendy Pike, DO, FACP CPT-56563 Ofc Vst, Est Level IV 15:46:40 CDT Denaagata Reynaga Pike Denaagata Pike, DO, FACP CPT-28593 Ofc Vst, Est Level IV 11:09:13 CDT Denaagata Jimoxana [facility] CPT-71621 Ofc Vst, Est Level IV 11:32:45 CDT Dena Reynaga Glendy Pike, DO, FACP CPT-59120 Ofc Vst, Est Level V 11:22:10 VP GENETIC Dena Juhi Glendy Pike, DO, FACP CPT-92617 Ofc Vst, Est Level IV 10:53:51 VP GENETIC Dena Juhileydi Pike, DO, FACP CPT-52578 Ofc Vst, Est Level IV 10:55:38 CDT Dena Juhileydi Pike, DO, FACP CPT-03924 Ofc Vst, Est Level IV 12:00:45 CDT Dena Juhi Pike Dena S Pike, DO, FACP CPT-31577 Ofc Vst, Est Level IV 12:02:26 VP GENETIC Dena Juhi Monahan Pike, DO, FACP CPT-67791 Ofc Vst, Est Level IV 11:23:31 CDT Dena Juhi Monahan Pike, DO, FACP CPT-56183 Ofc Vst, Est Level IV 10:43:31 CDT Dena Juhi Jimner, DO, FACP CPT-58955 Ofc Vst, Est Level IV 11:03:49 CDT Dena Juhi Monahan Pike, DO, FACP CPT-77803 Ofc Vst, Est Level IV 11:59:36 CDT Dena Juhi Monahan Pike, DO, FACP CPT-04146 Ofc Vst, Est Level IV 11:55:00 VP GENETIC Dena Juhi Monahan Pike, DO, FACP CPT-84336 Ofc Vst, Est Level IV 14:11:27 CDT Dena Juhi Monahan Pike, DO, FACP CPT-71576 Ofc Vst, Est Level III 13:44:49 CDT Dena Monahan Pike, DO, FACP CPT-57754 Ofc Vst, Est Level V 11:29:53 CDT Dena Juhi Monahan Pike, DO, FACP CPT-81283 Ofc Vst, Est Level IV 15:14:05 VP GENETIC Dena Juhi Monahan Pike, DO, FACP CPT-08427 Ofc Vst, Est Level IV 14:47:42 CDT Dena Juhi oMnahan Pike, DO, FACP CPT-32419 Ofc Vst, Est Level IV 14:22:26 CDT Dena Juhi Pike [facility] CPT-37682 Ofc Vst, Est Level IV 14:22:07 CDT Dena Pike [facility] CPT-97030 Ofc Vst, Est Level IV 14:37:46 VP GENETIC Dena Pike [facility] [employer] CPT-86746 Ofc Vst, Est Level IV 13:47:03 CDT Dena Pike [facility] [employer] CPT-23456 Ofc Vst, Est Level IV 14:19:58 CDT Dena Juhi Pike [facility] [employer] CPT-03617 Ofc Vst, Est Level IV 14:14:41 VP GENETIC Dena Juhi Pike [facility] CPT-64255 Ofc Vst, Est Level IV 15:18:29 VP GENETIC Dean Pike [facility] [employer] CPT-50098 Ofc Vst, Est Level IV 15:00:16 VP GENETIC Dnea Pike [facility] [employer] CPT-81930 Ofc Vst, Est Level IV 16:17:24 VP GENETIC Dena Pike [facility] [employer] CPT-78113 Ofc Vst, Est Level V 10:49:19 VP GENETIC Dena Pike [facility] CPT-08886 Ofc Vst, Est Level IV 14:06:43 CDT Dena Pike [facility] CPT-92946 Ofc Vst, Est Level IV 14:00:54 CDT Dena Pike [facility] [employer] CPT-15064 Ofc Vst, Est Level IV 18:22:05 VP GENETIC Dena Pike [facility] CPT-38953 Ofc Vst, Est Level IV 17:56:25 VP GENETIC Dena Pike [facility] [employer] CPT-81989 Ofc Vst, Est Level IV 19:09:11 CDT Dena Pike [facility] [employer] CPT-48254 Ofc Vst, New Level III 15:31:43 CDT Dena Pike [facility] [employer] Procedures Code Procedure Name Date Entry Date [...] Medicare Annual Wellness Visit Initial 15:35:03 CDT CPT-67121 Injection, Pneumovax 10:53:51 VP GENETIC CPT-47631 Cryopathy Skin 10:53:51 VP GENETIC CPT-88815 Tetanus vaccine, adsorbed, intramuscular 13:44:49 CDT CPT-12809 Cryopathy Skin 14:22:07 CDT CPT-78080 Cryopathy Skin 14:37:46 VP GENETIC CPT-83950 EKG w/ Interpretation 10:49:19 VP GENETIC
--- OUTSIDE RECORDS SUMMARY | 2017-06-18 13:00 | XMS REPORT | Clinical Summary ---
Author Author User, Evgen Organization [facility] [place] Address Unknown Phone Unavailable Allergies, Adverse Reactions, [...] Coronary atherosclerosis of unspecified type of vessel, nooksack or graft INSOMNIA, CHRONIC 780.52 Active Dena [...] PO on Thursday and . WARFARIN SODIUM 84770210513 Active Dena Pike AMARYL 1 MG TABS 1/2 PO daily GLIMEPIRIDE 94147573773 Active Dena Pike XARELTO 20 MG TABS 1 po daily RIVAROXABAN 23527844744 No Longer Active Dena Pike LASIX 20 MG TAB 1 PO 3 times weekly prn swelling FUROSEMIDE 10820512776 Active Gloria Frazier ZANTAC 150 MG TAB 1 PO bid RANITIDINE HCL 56829320754 No Longer Active Dena Juhi Pike MOBIC 15 MG TABS 1 po daily MELOXICAM 10197108354 Active Dena Pike FREESTYLE TEST STRIPS STRP as directed GLUCOSE BLOOD 96720998352 No Longer Active Dena Juhi Pike CALTRATE 600 PLUS-VIT D 600-200 MG-IU TABS 1 PO bid CALCIUM-VITAMIN D 10072168537 No Longer Active Denaagata Pike HERBAL BLADDER MEDICINE 1 PO daily HERBAL BLADDER MEDICINE No Longer Active Denaagata Pike CLOTRIMAZOLE-BETAMETHASONE 1-0.05 % CREA apply to affected areas prn CLOTRIMAZOLE-BETAMETHASONE 66798499874 No Longer Active Dena Juhi Pike ZOCOR 40 MG TABS 1/2 PO DAILY SIMVASTATIN 68396594577 Active Denaagata Pike SILVADENE 1 % CREA apply small amount over wound twice daily 2011 SILVER SULFADIAZINE 32338506238 No Longer Active Denaagata Pike NORVASC 5 MG TAB 1 PO QD AMLODIPINE BESYLATE 88978238257 Active Dena Juhi Pike DAYPRO 600 MG TABS 1 PO DAILY OXAPROZIN 50005604459 No Longer Active Wing Smiley XANAX 0.25 MG TABS 1 PO Q hs ALPRAZOLAM 57620940336 Active Dena Juhi Pike XANAX 0.25 MG TABS 1 PO BID as needed for nerves ALPRAZOLAM 89275412109 No Longer Active Denaagata Pike HYDROCODONE-ACETAMINOPHEN 10-660 MG TABS 1 po q 3 hrs prn pain HYDROCODONE-ACETAMINOPHEN 85558234170 No Longer Active Dena Juhi Pike MOBIC 15 MG TABS 1 PO daily for arthritis pain MELOXICAM 66657777213 No Longer Active Gloriatierra Frazier COUMADIN 5 MG TAB 1 PO daily WARFARIN SODIUM 61406257045 No Longer Active Dena Juhi Pike PROTONIX 40 MG TBEC 1 po qd PANTOPRAZOLE SODIUM 48014841147 No Longer Active Dena Juhi Pike LASIX 20 MG TAB 1 PO daily prn swelling FUROSEMIDE 40031045972 No Longer Active Dena Juhi Pike CARAFATE 1 GM TABS 1 PO 30 minutes before meals and at bedtime SUCRALFATE 48804261381 No Longer Active Dena Juhi Pike FISH OIL 500 MG CAPS 1 PO daily OMEGA-3 FATTY ACIDS 60185888420 No Longer Active Dena Juhi Pike OMEPRAZOLE 20 MG CPDR 1 PO BID OMEPRAZOLE 84477747718 No Longer Active Dena Juhi Pike DIOVAN 320 MG TABS 1 PO daily VALSARTAN 77256157409 No Longer Active Dena Juhi Pike ASPIR-LOW 81 MG TBEC 1 PO QOD ASPIRIN 23109231219 No Longer Active Dena Juhi Pike K-DUR 10 MEQ TAB CR 1 PO daily as directed POTASSIUM CHLORIDE No Longer Active Dena Juhi Pike LASIX 20 MG TAB 1 PO every other day prn swelling FUROSEMIDE 63895401480 No Longer Active Denaagata Pike DETROL 1 MG TABS 1 PO BID TOLTERODINE TARTRATE 70431075757 No Longer Active Gómez Gomez BENADRYL 25 MG CAP 1 PO QPM DIPHENHYDRAMINE HCL 17102720192 No Longer Active Denaagata Pike MELATONIN 5 MG TABS 1 PO QHS MELATONIN 37024251858 Active Dena Juhi Pike VYTORIN 10-20 MG TABS 1/2 PO daily EZETIMIBE-SIMVASTATIN 30105428066 No Longer Active Dena Juhi Pike LOTENSIN 40 MG TAB 1 PO Daily BENAZEPRIL HCL 10465460954 Active Dena Juhi Pike ZOCOR 10 MG TABS 1 po daily SIMVASTATIN 83532873352 No Longer Active Valerie Talbertgrist LIPITOR 10 MG TABS 1 PO QOD ATORVASTATIN CALCIUM 73537442521 No Longer Active Ashlee Sheppard K-DUR 20 MEQ TBCR 1 po daily prn POTASSIUM CHLORIDE KAMINI CR 78916236736 No Longer Active Dena Juhi Pike LASIX 20 MG TABS 1 po daily prn FUROSEMIDE 37859285372 No Longer Active Dena Juhi Pike LIPITOR 10 MG TABS 1 tab po qod ATORVASTATIN CALCIUM 88752286721 No Longer Active Dena Juhi Pike LUNESTA 2 MG TABS 1 PO QHS prn ESZOPICLONE 44606943474 No Longer Active Dena Juhi Pike ADVAIR DISKUS 100-50 MCG/DOSE MISC 1 puff BID for 3 days FLUTICASONE-SALMETEROL 65327880590 No Longer Active Dena Juhi Pike ALTACE 10 MG CAPS 1 PO daily RAMIPRIL 97575669417 No Longer Active Gloria Frazier LUNESTA 2MG 1 PO QHS LUNESTA 2MG No Longer Active Dena Juhi Pike AVANDIA 4 MG TABS 1 po BID ROSIGLITAZONE MALEATE 66231893881 No Longer Active Dena Juhi Pike TRAZODONE HCL 50 MG TABS 1-2 tabs po at hs TRAZODONE HCL 01380148976 No Longer Active Dena Juhi Pike OMEPRAZOLE 20 MG CPDR 1 tab po daily prn OMEPRAZOLE 72991789461 No Longer Active Dena Juhi Pike DAYPRO 600 MG TABS 1/2 - 1 tab po daily prn OXAPROZIN 66426726140 No Longer Active Dena Juhi Pike LOTREL 5-10 MG CAP 1 PO QD AMLODIPINE BESY-BENAZEPRIL HCL 61928256335 No Longer Active Dena Juhi Pike GLUCOPHAGE 500 MG TAB 1 PO TID METFORMIN HCL 01723246348 No Longer Active Dena Juhi Pike AMBIEN 10 MG TAB 1 prn ZOLPIDEM TARTRATE 37411887871 No Longer Active Dena Juhi Pike GLUCOPHAGE 500 MG TABS 1 tab po tid METFORMIN HCL 63120740649 No Longer Active Dena Juhi Pike LISINOPRIL 20 MG TABS 1 tab po daily LISINOPRIL 95763693445 No Longer Active Dena Juhi Pike ATENOLOL 100 MG TABS 1 tab po bid ATENOLOL 59413082353 Active Dena Juhi Pike Immunizations Vaccine Administration Date Value Standard Description Influenza vaccine given received influenza virus vaccine, unspecified formulation pneumococcal immunization administered done pneumococcal polysaccharide vaccine, 23 valent dT (Diphtheria and Tetanus) booster given Dr. Pike Td(adult) unspecified formulation Comvax, combined Hemophilus influenza B and Hepatitis B virus vaccine done Haemophilus influenzae type b conjugate and Hepatitis B vaccine pneumococcal immunization administered [facility] pneumococcal polysaccharide vaccine, 23 valent [...] mg/dL Encounters Code Encounter Date Provider Facility CPT-41609 Ofc Vst, Est Level III 12:15:17 CDT Denaagata Monahan Pike, DO, FACP CPT-23310 Ofc Vst, Est Level III 16:00:06 CDT Dena Juhi Monahan Pike, DO, FACP CPT-73402 Ofc Vst, Est Level IV 11:43:30 CDT Dena Juhi Monahan Glendy, DO, FACP CPT-94099 Ofc Vst, Est Level III 17:09:51 CDT Denaagata Monahan Glendy, DO, FACP CPT-19237 Ofc Vst, Est Level IV 15:22:22 AUTOMOTIVE FUEL INJECTION SERVICER Dena Monahan Glendy, DO, FACP CPT-63277 Ofc Vst, Est Level IV 15:46:40 CDT Dena Juhi Monahan Glendy, DO, FACP CPT-32913 Ofc Vst, Est Level IV 11:09:13 CDT Denaagata [facility] CPT-52729 Ofc Vst, Est Level IV 11:32:45 CDT Dena Juhi Monahan Glendy, DO, FACP CPT-07787 Ofc Vst, Est Level V 11:22:10 AUTOMOTIVE FUEL INJECTION SERVICER Dena Monahan Glendy, DO, FACP CPT-59304 Ofc Vst, Est Level IV 10:53:51 AUTOMOTIVE FUEL INJECTION SERVICER Dena Juhi Monahan Pike, DO, FACP CPT-21727 Ofc Vst, Est Level IV 10:55:38 CDT Dena Juhi Monahan Glendy, DO, FACP CPT-74367 Ofc Vst, Est Level IV 12:00:45 CDT Denaagata Monahan Glendy, DO, FACP CPT-86895 Ofc Vst, Est Level IV 12:02:26 AUTOMOTIVE FUEL INJECTION SERVICER Dena Juhi Monahan Glendy, DO, FACP CPT-76189 Ofc Vst, Est Level IV 11:23:31 CDT Dena Juhi Monahan Glendy, DO, FACP CPT-56138 Ofc Vst, Est Level IV 10:43:31 CDT Dena Juhi Monahan Glendy, DO, FACP CPT-55244 Ofc Vst, Est Level IV 11:03:49 CDT Dena Juhi Monahan Glendy, DO, FACP CPT-28469 Ofc Vst, Est Level IV 11:59:36 CDT Dena Juhi Monahan Glendy, DO, FACP CPT-17602 Ofc Vst, Est Level IV 11:55:00 AUTOMOTIVE FUEL INJECTION SERVICER Dena Monahan Glendy, DO, FACP CPT-87979 Ofc Vst, Est Level IV 14:11:27 CDT Dena Juhi Monahan Glendy, DO, FACP CPT-30229 Ofc Vst, Est Level III 13:44:49 CDT Dena Jhui Monahan Glendy, DO, FACP CPT-35398 Ofc Vst, Est Level V 11:29:53 CDT Denaagata Monahan Glendy, DO, FACP CPT-77493 Ofc Vst, Est Level IV 15:14:05 AUTOMOTIVE FUEL INJECTION SERVICER Denaagata Monahan Glendy, DO, FACP CPT-68158 Ofc Vst, Est Level IV 14:47:42 CDT Dena Juhi Monahan Glendy, DO, FACP CPT-22103 Ofc Vst, Est Level IV 14:22:26 CDT Dena Cortezanne Glendy [facility] [place] CPT-23342 Ofc Vst, Est Level IV 14:22:07 CDT Dena Juhi Pike [facility] [place] CPT-68946 Ofc Vst, Est Level IV 14:37:46 AUTOMOTIVE FUEL INJECTION SERVICER Dena Pike [facility] [place] CPT-32176 Ofc Vst, Est Level IV 13:47:03 CDT Dena Pike [facility] [place] CPT-06536 Ofc Vst, Est Level IV 14:19:58 CDT Dena Pike [facility] [place] CPT-29724 Ofc Vst, Est Level IV 14:14:41 AUTOMOTIVE FUEL INJECTION SERVICER Dena Pike [facility] [place] CPT-78931 Ofc Vst, Est Level IV 15:18:29 AUTOMOTIVE FUEL INJECTION SERVICER Dena Pike [facility] [place] CPT-60724 Ofc Vst, Est Level IV 15:00:16 AUTOMOTIVE FUEL INJECTION SERVICER Dena Pike [facility] [place] CPT-79223 Ofc Vst, Est Level IV 16:17:24 AUTOMOTIVE FUEL INJECTION SERVICER Dena Pike [facility] [place] CPT-52894 Ofc Vst, Est Level V 10:49:19 AUTOMOTIVE FUEL INJECTION SERVICER Dena Pike [facility] [place] CPT-62157 Ofc Vst, Est Level IV 14:06:43 CDT Dnea Pike [facility] [place] CPT-17343 Ofc Vst, Est Level IV 14:00:54 CDT Dena Pike [facility] [place] CPT-64235 Ofc Vst, Est Level IV 18:22:05 AUTOMOTIVE FUEL INJECTION SERVICER Dena Pike [facility] [place] CPT-91640 Ofc Vst, Est Level IV 17:56:25 AUTOMOTIVE FUEL INJECTION SERVICER Dena Pike [facility] [place] CPT-41249 Ofc Vst, Est Level IV 19:09:11 CDT Dena Pike [facility] [place] CPT-01148 Ofc Vst, New Level III 15:31:43 CDT Dena Pike [facility] [place] Procedures Code Procedure Name Date Entry Date [...] Medicare Annual Wellness Visit Initial 15:35:03 CDT CPT-36358 Injection, Pneumovax 10:53:51 AUTOMOTIVE FUEL INJECTION SERVICER CPT-42594 Cryopathy Skin 10:53:51 AUTOMOTIVE FUEL INJECTION SERVICER CPT-38826 Tetanus vaccine, adsorbed, intramuscular 13:44:49 CDT CPT-24914 Cryopathy Skin 14:22:07 CDT CPT-05888 Cryopathy Skin 14:37:46 AUTOMOTIVE FUEL INJECTION SERVICER CPT-05423 EKG w/ Interpretation 10:49:19 AUTOMOTIVE FUEL INJECTION SERVICER
--- OUTSIDE RECORDS SUMMARY | 2017-06-18 13:00 | XMS REPORT | Continuity of Care Document ---
Author Author [facility] Organization [facility] Address Unknown Phone Unavailable Allergies Active Description Code Type Severity Reaction Onset Reported/Identified Relationship to Patient Clinical Status Yes No Known Drug Allergies [id number] Drug Allergy Unknown N/A 03/30/2010 Medications There is no data. Problems Date Dx Coded Attending Type Code Diagnosis Diagnosed By 04/02/1330 ASHLEY SANTIAGO, RISA Dale Ot M75.01 ADHESIVE CAPSULITIS OF RIGHT SHOULDER 04/02/1330 RISA RAMIREZ MD Ot M75.02 ADHESIVE CAPSULITIS OF LEFT SHOULDER 09/30/2012 SANJUANA FOLEY MD Ot 427.31 ATRIAL FIBRILLATION 09/30/2012 SANJUANA FOLEY MD Ot V58.69 OTH MED,LT,CURRENT USE 10/04/2013 FLY PERALTA MD Ot 250.00 DIAB SIDNEY WO COMPL, TYPE II OR UNSPEC TY 10/04/2013 FLY PERALTA MD Ot 272.4 HYPERLIPIDEMIA NEC/NOS 10/04/2013 FLY PERALTA MD Ot 401.9 HYPERTENSION NOS 10/04/2013 FLY PERALTA MD Ot 414.00 CORON ATHEROSCLER NOS TYPE VESSEL, NATIV 10/04/2013 FLY PERALTA MD Ot 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 10/04/2013 FLY PERALTA MD Ot 433.10 CAROTID ARTERY OCCLUSION W O CEREBRAL IN 10/04/2013 FLY PERALTA MD Ot 453.40 ACUTE VENOUS EMBOLISM THROMBOSIS UNSP 10/04/2013 FLY PERALTA MD Ot 786.50 CHEST PAIN NOS 03/13/2014 ERNESTINA LOPES IZABEL Ot 250.00 DIAB SIDNEY WO COMPL, TYPE II OR UNSPEC TY 03/13/2014 ERNESTINA LOPES IZABEL Ot 272.4 HYPERLIPIDEMIA NEC/NOS 03/13/2014 ERNESTINA LOPES IZABEL Ot 401.9 HYPERTENSION NOS 03/13/2014 ERNESTINA LOPES IZABEL Ot 427.31 ATRIAL FIBRILLATION 03/13/2014 ERNESTINA DO, IZABEL Ot 530.81 ESOPHAGEAL REFLUX 03/13/2014 DO DO, IZABEL Ot 715.36 LOC OSTEOARTH NOS-L/LEG 03/13/2014 ERNESTINA DO, IZABEL Ot 717.49 DERANG LAT MENISCUS NEC 03/18/2016 ASHLEY SANTIAGO, RISA Dale Ot M75.01 ADHESIVE CAPSULITIS OF RIGHT SHOULDER 03/18/2016 ASHLEY SANTIAGO, RISA Dale Ot M75.02 ADHESIVE CAPSULITIS OF LEFT SHOULDER 03/18/2016 ASHLEY SANTIAGO, RISA Dale Ot M75.01 ADHESIVE CAPSULITIS OF RIGHT SHOULDER 03/18/2016 ASHELY SANTIAGO, RISA Dale Ot M75.02 ADHESIVE CAPSULITIS OF LEFT SHOULDER 04/02/2016 ASHLEY SANTIAGO, RISA Dale Ot M75.01 ADHESIVE CAPSULITIS OF RIGHT SHOULDER 04/02/2016 ASHLEY SANTIAGO, RISA Dale Ot M75.02 ADHESIVE CAPSULITIS OF LEFT SHOULDER 04/15/2016 ASHLEY SANTIAGO, RISA Dale Ot M75.01 ADHESIVE CAPSULITIS OF RIGHT SHOULDER 04/15/2016 ASHLEY SANTIAGO, RISA Dale Ot M75.02 ADHESIVE CAPSULITIS OF LEFT SHOULDER 08/11/2016 CHEL SALDAÑA PROFESSIONAL DRIVER Ot R10.31 RIGHT LOWER QUADRANT PAIN 09/16/2016 CHEL SALDAÑA PROFESSIONAL DRIVER Ot R10.31 RIGHT LOWER QUADRANT PAIN 11/14/2016 Ot 715.91 OSTEOARTHROS NOS-SHLDER 11/14/2016 Ot 726.10 BURSAE TENDONS DIS SHLDER NOS 11/14/2016 JENELLE TORRES MD Ot 726.10 BURSAE TENDONS DIS SHLDER NOS 11/14/2016 JENELLE TORRES MD Ot V72.81 [id number] CARDIOVASCULAR 11/14/2016 JENELLE TORRES MD Ot V74.8 SCREEN-BACTERIAL DIS NEC 11/14/2016 JENELLE TORRES MD Ot 401.9 HYPERTENSION NOS 11/14/2016 JENELLE TORRES MD Ot 427.31 ATRIAL FIBRILLATION 11/14/2016 JENELLE TORRES MD Ot 715.91 OSTEOARTHROS NOS-SHLDER 11/14/2016 JENELLE TRORES MD Ot 726.10 BURSAE TENDONS DIS SHLDER NOS 11/14/2016 JENELLE TORRES MD Ot V58.69 OT MED,LT,CURRENT USE 11/14/2016 TIKA HO Ot 414.00 CORON ATHEROSCLER NOS TYPE VESSEL, NATIV 11/14/2016 TIKA HO Ot 427.31 ATRIAL FIBRILLATION 11/14/2016 FLY PERALTA MD Ot 272.4 HYPERLIPIDEMIA NEC/NOS 11/14/2016 FLY PERALTA MD Ot 397.0 TRICUSPID VALVE DISEASE 11/14/2016 FLY PERALTA MD Ot 401.9 HYPERTENSION NOS 11/14/2016 FLY PERALTA MD Ot 424.0 MITRAL VALVE DISORDER 11/14/2016 FLY PERALTA MD Ot 786.50 CHEST PAIN NOS 11/14/2016 FLY PERALTA MD Ot V12.51 HX-VENOUS THROMBOSIS EMBOLISM 11/14/2016 Ot 250.00 DIAB SIDNEY WO COMPL, TYPE II OR UNSPEC TY 11/14/2016 Ot 272.4 HYPERLIPIDEMIA NEC/NOS 11/14/2016 Ot 401.9 HYPERTENSION NOS 11/14/2016 Ot 414.00 CORON ATHEROSCLER NOS TYPE VESSEL, NATIV 11/14/2016 Ot 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 11/14/2016 Ot 433.10 CAROTID ARTERY OCCLUSION W O CEREBRAL IN 11/14/2016 Ot 453.40 ACUTE VENOUS EMBOLISM THROMBOSIS UNSP 11/14/2016 Ot 786.50 CHEST PAIN NOS 11/14/2016 CHEL SALDAÑA APRN Ot R10.31 RIGHT LOWER QUADRANT PAIN 11/19/2016 TIKA HO Ot I10 ESSENTIAL (PRIMARY) HYPERTENSION 11/19/2016 TIKA HO Ot I25.10 ATHSCL HEART DISEASE OF [place] CORONARY 11/19/2016 TIKA HO Ot I48.0 PAROXYSMAL ATRIAL FIBRILLATION 11/19/2016 TIKA HO Ot I65.23 OCCLUSION AND STENOSIS OF BILATERAL [place] 12/10/2016 TIKA HO Ot I10 ESSENTIAL (PRIMARY) HYPERTENSION 12/10/2016 TIKA HO Ot I25.10 ATHSCL HEART DISEASE OF [place] CORONARY 12/10/2016 TIKA HO Ot I48.0 PAROXYSMAL ATRIAL FIBRILLATION 12/10/2016 TIKA HO Ot I65.23 OCCLUSION AND STENOSIS OF [place]ATER[place] Procedures There is no data. Results There is no data. Encounters ACCT No. Visit Date/Time Discharge Status Pt. Type Provider Facility Loc./Unit Complaint [id number] 11/17/2016 12:54:00 11/17/2016 23:59:59 CLS Outpatient TIKA HO [facility] CARD CAD,HTN,PAF [id number] 08/08/2016 10:49:00 08/08/2016 23:59:59 CLS Outpatient CHEL SALDAÑA APRN [facility] RAD PERSISTENT RLQ PAIN [id number] 03/06/2016 11:16:00 04/15/2016 13:31:00 DIS Outpatient RISA RAMIREZ MD [facility] REHAB ADHESIVE CAPSULITIS B UE [id number] 03/13/2014 10:51:00 03/13/2014 23:59:59 CLS Emergency [id number] 03/13/2014 12:17:00 03/13/2014 18:50:00 DIS Inpatient IZABEL DO DO [facility] SURGICAL LEFT KNEE PAIN [id number] 07/06/2013 12:57:00 10/04/2013 00:01:00 DIS Outpatient FLY PERALTA MD [facility] CARD CP,DVT,HTN [id number] 06/27/2013 08:54:00 06/27/2013 23:59:59 CLS Outpatient FLY PERALTA MD [facility] CARD CP,DVT,PE,HTN [id number] 10/04/2012 07:28:00 10/04/2012 23:59:59 C[facility] BURSITIS [id number] 10/01/2012 11:11:00 10/01/2012 23:59:59 CLS Outpatient TIKA HO [facility] CARD A-FIB,CAD [id number] 09/30/2012 13:51:00 09/30/2012 16:26:00 DIS Emergency SANJUANA FOLEY MD [facility] ER IRR HEART RATE [id number] 09/28/2012 10:27:00 09/28/2012 23:59:59 CLS Outpatient REVEAL , JENELLE Ivy [facility] PREOP CHRONIC LEFT SHOULDER BURSITIS [id number] 11/14/2016 10:39:00 Document Registration [id number] 10/05/2013 13:00:00 Document Registration [id number] 08/02/2012 13:30:00 Document Registration
== END 2017-06-15 20:45 | disposition short-term general hospital (02) ==
LOC: EDUNIT# 19:02 → ER 19:02
DX: I62.9 Nontraumatic intracranial hemorrhage, unspecified (principal); R47.1 Dysarthria and anarthria; R47.02 Dysphasia; M62.81 Muscle weakness (generalized); I16.1 Hypertensive emergency; I48.91 Unspecified atrial fibrillation; I10 Essential (primary) hypertension; K21.9 Gastro-esophageal reflux disease without esophagitis; E11.9 Type 2 diabetes mellitus without complications; Z82.49 Family history of ischemic heart disease and other diseases of the circulatory system; Z79.82 Long term (current) use of aspirin; Z79.84 Long term (current) use of oral hypoglycemic drugs; Z79.01 Long term (current) use of anticoagulants; Z90.710 Acquired absence of both cervix and uterus
CPT/HCPCS: 36415; 51702; 70450; 71045; 80053; 81000; 82962; 84484; 85025; 85379; 85610; 85730; 93005; 93041; 96365; 96375; 99291; 99292

== ENCOUNTER → 2017-06-24 | Outpatient (CLI) | payer MEDICARE, OTHER ==
[2017-06-24 08:50] LABS: BILIRUBIN,URINE NEGATIVE (NEGATIVE); CLARITY,URINE VERY CLOUDY; COLOR,URINE YELLOW; GLUCOSE, URINE (UA) NEGATIVE (NEGATIVE); KETONES,URINE 2+ (NEGATIVE); LEUKOCYTE ESTERASE ,URINE 3+ (NEGATIVE); NITRITE,URINE NEGATIVE (NEGATIVE); PH,URINE 6.5 (5-9); PROTEIN,URINE 2+ (NEGATIVE); UROBILINOGEN,URINE 8 MG/DL (NORMAL)
[2017-06-24 08:58] LABS: BACTERIA,URINE LARGE /HPF; CALCIUM OXALATE CRYSTALS,UR RARE /LPF; RBC,URINE 50-100 /HPF; WBC,URINE TNTC /HPF
== END ==
PROVIDERS: ATTEND Family Medicine
DX: R82.90 Unspecified abnormal findings in urine (principal); R45.1 Restlessness and agitation; R41.0 Disorientation, unspecified
CPT/HCPCS: 81000; 87088